=== PATIENT | female | born 1975 | race Caucasian/White ===

== ENCOUNTER 2023-08-17 02:36 | Emergency (ER) | payer SELFPAY ==
[2023-08-17 02:37] VITALS: BP 137/88; PULSE 75; RESP 18; TEMP 36.9; O2SAT 95; BMI 23.1
[2023-08-17 02:52] LABS: Coronavirus 19, PCR Not Detected (NotDetected); Influenza A, PCR Not Detected (NotDetected); Influenza B, PCR Not Detected (NotDetected)
[2023-08-17] MEDS: ONDANSETRON 4MG/2ML VIAL 4 MG IV (02:53)
[2023-08-17] MEDS: BELLADONNA ALKALOIDS 60 ML ML PO (02:53)
[2023-08-17] MEDS: KETOROLAC 30MG/ML VIAL 30 MG IV (02:54)
[2023-08-17 02:55] LABS: Basophils # 0.1 K/mm3 (0-0.2); Basophils % 1.4 % (0.1-2.0); Eosinophils # 0.1 K/mm3 (0.0-0.4); Eosinophils % 1.5 % (0.1-12.0); Hematocrit 41.7 % (37.0-47.0); Hemoglobin 13.1 g/dL (12.2-16.2); Lymphocytes # 1.1 K/mm3 (0.7-4.5); Lymphocytes % 20.7 % (10-50); Mean Corpuscular HGB Conc 31.5 g/dL (31.8-35.4); Mean Corpuscular Hemoglobin 30.3 pg (27.0-31.2); Mean Corpuscular Volume 96.1 fl (81-99); Mean Platelet Volume 7.8 fl (7.4-10.4); Monocytes # 0.4 K/mm3 (0.1-1.0); Monocytes % 7.8 % (1.7-9.3); Neutrophils # 3.8 K/mm3 (1.8-7.8); Neutrophils % 68.7 % (37.0-80.0); Platelet Count 392 K/mm3 (142-424); Red Blood Count 4.34 M/mm3 (4.20-5.40); Red Cell Distribution Width 14.1 % (11.5-17.5); White Blood Count 5.5 K/mm3 (4.8-10.8)
[2023-08-17 02:56] LABS: Chloride 98 mmol/L (98-107); Potassium 3.2 mmoL/L (3.5-5.1); Sodium 134 mmol/L (136-145)
[2023-08-17 02:58] LABS: Blood Urea Nitrogen 17 mg/dl (7-17); Creatinine Clearance Estimated 68 mL/min (50-200); Estimated Glomerular Filt Rate 60 ml/min (>60); GFR (African American) 72 ML/MIN (>60)
[2023-08-17 02:59] LABS: Alanine Aminotransferase 24 U/L (12-78); Albumin Level 3.7 g/dl (3.5-5.0); Albumin/Globulin Ratio 1.1 (1.1-1.8); Alkaline Phosphatase 86 U/L (38-126); Anion Gap 7.2 mEq/L (5-15); Aspartate Amino Transferase 28 U/L (14-36); Bilirubin,Total 0.6 mg/dl (0.2-1.3); Calcium 8.1 mg/dl (8.4-10.2); Carbon Dioxide 32 mmol/L (22.0-30.0); Globulin 3.3 g/dL (1.3-3.2); Glucose 103 mg/dl (74-100); Lipase 14 U/L (23-300)
--- NOTE | 2023-08-17 03:01 | ED_ITS ---
Discharge Plan Disposition Patient Disposition: Home, Self-Care Referrals Follow up/Referrals: Provider,Referral, [Primary Care Provider] - See instructions Activity Restrictions/Add. Instructions Additional Instructions/Restrictions: Please follow-up with your primary care provider. Please return to the emergency department if you develop any new or worsening symptoms or become concerned for your health. Please remain hydrated. Clinical Impressions Clinical Impression: Acute hypokalemia Diarrhea Qualifiers: Diarrhea type: presumed infectious Qualified Code(s): R19.7 - Diarrhea, unspecified Abdominal pain Qualifiers: Abdominal location: right upper quadrant Qualified Code(s): R10.11 - Right upper quadrant pain Instructions Patient Instructions: DI for Acute Abdominal Pain Discharge ED Provider: Chong Saenz Adult HPI General Chief complaint: Abdominal Pain Stated complaint: abd pain Time Seen by Provider: 08/17/23 02:39 Mode of Arrival: Wheelchair Source of Information: Patient and Relative Limitations: No Limitations Description of Symptoms (Recalled from ER Triage Doc. by RN): Patient reports epigastric pain that started several days ago. Nausea and vomiting. Patient does report that she went to a [place] party about a week and a half ago and did a bump of crystal meth but that she does not feel that this is related. History of Present Illness HPI narrative: 47-year-old female with no significant past medical history (does not see doctors) presents with abdominal pain, subjective fever at home, diarrhea. She reports symptoms been present for approximate last week and been worsening. She is concerned she could have the flu. Her abdominal pain is worse in the epigastrium and right upper quadrant. She denies any chest pain. She denies any significant nausea or vomiting. Reports that she has not been eating as much but she has been able to drink fluids. Denies any history of abdominal surgeries. Related Data Allergies Allergy/AdvReac Type Severity Reaction Status Date / Time No Known Allergies Allergy Verified 08/17/23 02:58 [facility] Disclaimer: The information contained in this section may have been updated after the patient was seen, as this information can be updated by other users. Social History Smoking Status: Current every day smoker alcohol intake: current current occupational status: other Travel in the last 8 weeks: None ROS Obtained: Yes All systems reviewed & no additional complaints except as documented Physical Exam General General appearance: alert and in no apparent distress Head Head exam: atraumatic and normocephalic Eye Eye exam: Present normal appearance, PERRL and EOMI ENT ENT exam: Present normal oropharynx and normal external ear exam Neck Neck exam: Present normal inspection and full ROM Chest Chest inspection: Present normal inspection and symmetric chest wall rise; Absent tenderness Respiratory Respiratory exam: Present normal lung sounds bilaterally; Absent respiratory distress Cardiovascular Cardiovascular exam: Present regular rate and normal rhythm Abdominal Exam Abdominal exam: Present soft and tenderness (Mild, generalized, most prominent in the epigastrium and right upper quadrant); Absent distention or guarding Extremities Exam Extremities exam: Present normal inspection; Absent edema or joint swelling Back Exam Back exam: Present normal inspection; Absent tenderness Neurological Exam Neurological exam: Present alert and oriented X3; Absent motor sensory deficit Psychiatric Psychiatric exam: Present normal affect and normal mood Skin Skin exam: Present warm, dry and normal color Lymphatic Lymphatic Findings: no adenopathy Medical Decision Making Medical Records Medical records reviewed: Yes I reviewed the patient's medical records. Rashard Inquiry Pt receiving controlled substance: No Rashard was queried for this patient: No Vital Signs: 08/17/23 02:37 Temperature 98.5 F Temperature Source Oral Pulse Rate [Left Radial] 75 Respiratory Rate 18 Blood Pressure [Right Arm] 137/88 Blood Pressure Mean [Right Arm] 104 Blood Pressure Source [Right Arm] Automatic Cuff Blood Pressure Position [Right Arm] Sitting 02 Sat by Pulse Oximetry 95 Oxygen Delivery Method Room Air Lab Data Lab results reviewed: Yes I reviewed the patient's lab results. Lab Results 08/17/23 02:45: WBC 5.5, RBC 4.34, Hgb 13.1, Hct 41.7, MCV 96.1, MCH 30.3, MCHC 31.5 L, RDW 14.1, Plt Count 392, MPV 7.8, Neut % (Auto) 68.7, Lymph % (Auto) 20.7, [place] % (Auto) 7.8, Eos % (Auto) 1.5, Baso % (Auto) 1.4, Neut # (Auto) 3.8, Lymph # (Auto) 1.1, [place] # (Auto) 0.4, Eos # (Auto) 0.1, Baso # (Auto) 0.1, S odium 134 L, Potassium 3.2 L, Chloride 98, Carbon Dioxide 32 H, Anion Gap 7.2, BUN 17, Creatinine 1.00, Estimated Creat Clear 68, Estimated GFR 60, Est GFR ( Amer) 72, Glucose 103 H, Calcium 8.1 L, Total Bilirubin 0.6, AST 28, ALT 24, Alkaline Phosphatase 86, Total Protein 7.0, Albumin 3.7, Globulin 3.3 H, Albumin/Globulin Ratio 1.1, Lipase 14 L 08/17/23 02:48: SARS-CoV-2 (PCR) Not detected, Influenza A Untype (PCR) Not detected, Influenza Type B (PCR) Not detected 08/17/23 02:45 08/17/23 02:45 Orders (Tests/Meds): ED MEDICATIONS Discontinued Medications Generic Name Dose Route Start Last Admin Trade Name Freq PRN Reason Stop Dose Admin Belladonna Alkaloids 60 ml 08/17/23 02:47 08/17/23 02:53 Belladonna Alkaloids 60 Ml Ml PO 08/17/23 02:48 60 ml ONCE ONE Administration Ketorolac Tromethamine 30 mg 08/17/23 02:47 08/17/23 02:54 Ketorolac 30mg/Ml Vial IV 08/17/23 02:48 30 mg ONCE ONE Administration Ondansetron HCl 4 mg 08/17/23 02:47 08/17/23 02:53 Ondansetron 4mg/2ml Vial IV 08/17/23 02:48 4 mg ONCE ONE Administration Potassium Chloride 40 meq 08/17/23 03:01 08/17/23 03:02 Potassium Chloride 20meq Tab PO 08/17/23 03:02 40 meq ONCE ONE Administration ORDERS Category Date Time Status CBC w/Auto Diff [Complete Blood Count Auto Diff] Stat Lab 08/17/23 02:45 Completed CMP [Comprehensive Metabolic Panel] Stat Lab 08/17/23 02:45 Completed Lipase Stat Lab 08/17/23 02:45 Completed Rapid PCR Covid and Flu A/B Stat Lab 08/17/23 02:48 Completed Medical Decision Narrative: 47-year-old female with no significant past medical history presents with subjective fever, generalized abdominal pain worse in the right upper quadrant and epigastrium, diarrhea, for the last week or so. History was obtained interactive discussion with patient, family. On arrival, patient is [afebrile, hemodynamically stable, satting appropriately, alert, oriented x4, GCS 15], moving all extremities spontaneously. Full physical exam performed and significant for mild abdominal tenderness Differential includes but is not limited to cholecystitis, pancreatitis, gastroenteritis, dehydration. Patient was given IV Toradol, GI cocktail, Zofran IV, p.o. potassium 40 mill equivalents for symptomatic management and correction of underlying abnormalities. Workup initiated including CBC CMP lipase COVID flu swab. Bedside ultrasound was performed by me. Mitral rotation the gallbladder is normal in appearance, no gallbladder wall thickening, no pericholecystic fluid, grossly normal in size, no stones noted. On re-evaluation, patient [remains afebrile, HD stable.] Laboratory workup independently interpreted by me and significant for no significant leukocytosis, minimal hypokalemia with potassium 3.2, repleted orally with 40 mill equivalents, mild hypocalcemia, normal liver enzymes, negative lipase. COVID flu negative. CT imaging was considered, but deemed unnecessary due to benign abdominal exam, normal right upper quadrant ultrasound, unremarkable labs. Given patient history, exam and workup, patient's presentation most likely represents gastroenteritis and diarrhea with resultant mild hypokalemia. Extensive discussion had with patient regarding her presentation. No significant concern for emergent pathology at this time. Patient discharged in stable condition peer return precautions given.. Procedures Risk/Benefits of Procedure(s) Were Explained: Yes Critical Care Critical Care Time Critical Care Time: No
[2023-08-17] MEDS: POTASSIUM CHLORIDE 20MEQ TAB 40 MEQ PO (03:02)
[2023-08-17 03:23] VITALS: BP 134/70; PULSE 96; RESP 18; TEMP 36.7; O2SAT 95
== END 2023-08-17 03:24 | disposition home or self-care (01) ==
PROVIDERS: Emergency Provider Emergency Medicine
DX: E87.6 Hypokalemia (principal); R10.11 Right upper quadrant pain; R19.7 Diarrhea, unspecified; E87.1 Hypo-osmolality and hyponatremia; F17.210 Nicotine dependence, cigarettes, uncomplicated
CPT/HCPCS: 80053; 83690; 85025; 87636; 96374; 96375; 99284; J2405